=== PATIENT | male | born 1945 | race Caucasian/White ===

== ENCOUNTER → 2018-07-05 | Outpatient (CLI) | payer OTHER, MEDICARE | LOC: BHLMT 09:15 | PROVIDERS: ATTEND Internal Medicine Cardiovascular Disease | DX: I48.0 Paroxysmal atrial fibrillation (principal); I25.10 Atherosclerotic heart disease of native coronary artery without angina pectoris | CPT/HCPCS: 93306-PO ==

== ENCOUNTER 2018-07-12 08:30 | Inpatient (IN) | payer OTHER, MEDICARE ==
[2018-07-12 12:56] LABS: PLATELET COUNT 151 10^3/uL (150-400)
[2018-07-12 12:57] LABS: INR 2.09 (0.83-1.16); PROTIME(PATIENT) 22.5 SEC (12.0-15.0)
[2018-07-12] MEDS ORDERED: DOFETILIDE 0.5 MG CAP PO SCH (13:45)
--- NOTE | 2018-07-12 13:50 | PDCARPN ---
Cardiology Progress Note Chief Complaint: Atrial fibrillation Assessment/Plan: Assessment: 1. Atrial fibrillation with RVR: Symptoms include fatigue and activity intolerance. [id number] score = at least 3, he is anticoagulated with Coumadin. 2. Coronary artery disease: s/p PCI and CABG 3. Sustained ventricular tachycardia 4. ICD: 1 recent inappropriate shock second to Afib with RVR, recent ATP for sustained VT 5. Cardiomyopathy: s/p BiV ICD 6. PVCs: s/p successful ablation Plan: CrCl 103mL/min QTc overestimated by auto-ECG reading, QT<400ms, ICD in place 1. Load with Tikosyn 500mcg BID 2. ECG 2hrs post-administration 07/12/18 13:50 Reviewed/Discussed With: multidisciplinary team Time Spent with Patient: greater than 25 minutes Time Spent with Patient: Greater than 25 minutes spent on this patients care, greater than 50% of time spent counseling, educating, and coordinating care regarding the above mentioned plan. Objective: Vital Signs (8 Hrs) Temp Pulse Resp BP Pulse Ox 07/12/18 11:26 36.6 C 84 11 L 116/71 96 Intake/Output (24 Hrs) 07/11/18 07/12/18 07/13/18 05:59 05:59 05:59 Other: Weight 90.8 kg Result Diagrams: 07/12/18 12:40 07/12/18 12:40 EKG: QTc <500ms ICD10 Worksheet Patient Problems: Problems Problem Status Onset Cardiac defibrillator in situ Active Cardiomyopathy Active Congestive heart failure due to left ventricular systolic dysfunction Active Coronary artery bypass grafting Active Ventricular tachycardia Active
--- NOTE | 2018-07-12 14:09 | PDMN ---
Medical Necessity Medical necessity: [facility] [place]: 72 yo w/ afib w/ RVR here for Tikosyn ( dofetilide) loading. Hx CAD, PCI, CABG, sustained VT. IP status for afib w/ need for treatment with antiarrhythmic drugs that have significant proarrhythmic potential
[2018-07-12] MEDS: DOFETILIDE 0.5 MG CAP PO SCH ×2 (14:11→17:57)
[2018-07-12] MEDS ORDERED: ALPRAZolam 0.25 MG TAB PO PRN (16:06)
[2018-07-12] MEDS: ATORVASTATIN CALCIUM 40 MG TAB PO SCH (21:17)
[2018-07-12] MEDS: EZETIMIBE 10 MG TAB PO SCH (21:17)
[2018-07-12] MEDS: METOPROLOL TARTRATE 50 MG TAB PO SCH (21:17)
[2018-07-12] MEDS: TAMSULOSIN HCL 0.4 MG CAP PO SCH (21:17)
[2018-07-12] MEDS: ASPIRIN 81 MG CHEWABLE TAB PO SCH (21:17)
[2018-07-12] MEDS: WARFARIN SODIUM 4 MG TAB PO SCH (21:17)
[2018-07-12] MEDS: ZOLPIDEM TARTRATE 5 MG TAB PO PRN (21:21)
[2018-07-13 04:44] LABS: INR 2.08 (0.83-1.16); PROTIME(PATIENT) 22.4 SEC (12.0-15.0)
[2018-07-13] MEDS: DOFETILIDE 0.5 MG CAP PO SCH ×2 (09:02→21:22)
[2018-07-13] MEDS: CHOLECALCIFEROL VIT D3 2,000 UNITS TAB/CAP PO SCH (09:02)
[2018-07-13] MEDS: METOPROLOL TARTRATE 50 MG TAB PO SCH ×2 (09:02→21:21)
[2018-07-13] MEDS: ESCITALOPRAM OXALATE 10 MG TAB PO SCH (09:03)
[2018-07-13] MEDS: LISINOPRIL 2.5 MG TAB PO SCH (09:03)
[2018-07-13] MEDS: SPIRONOLACTONE 25 MG TAB PO SCH (09:03)
--- NOTE | 2018-07-13 09:09 | PDCARPN ---
Cardiology Progress Note Chief Complaint: Atrial fibrillation Assessment/Plan: Assessment: 1. Atrial fibrillation with RVR: Symptoms include fatigue and activity intolerance. [id number] score = at least 3, he is anticoagulated with Coumadin. 2. Coronary artery disease: s/p PCI and CABG 3. Sustained ventricular tachycardia 4. ICD: 1 recent inappropriate shock second to Afib with RVR, recent ATP for sustained VT 5. Cardiomyopathy: s/p BiV ICD 6. PVCs: s/p successful ablation Plan: CrCl 103mL/min QTc overestimated by auto-ECG reading, QT<500ms, ICD in place, no post-dose ECG completed yesterday 1. Continue to load with Tikosyn 500mcg BID 2. ECG 2hrs post-administration 3. Plan for cardioversion tomorrow, NPO after midnight 07/13/18 09:08 Objective: Vital Signs (8 Hrs) Temp Pulse Resp BP Pulse Ox 07/13/18 09:02 76 115/70 07/13/18 07:51 36.3 C 100 18 116/76 96 07/13/18 03:10 36.4 C 80 12 107/70 94 Intake/Output (24 Hrs) 07/12/18 07/13/18 07/14/18 05:59 05:59 05:59 Intake Total 400 Balance 400 Intake: Oral (ml) 400 IV Intake (ml) 0 Other: Weight 90.8 kg Result Diagrams: 07/12/18 12:40 07/13/18 03:34 Telemetry: Atrial fibrillation - Physical Exam Constitutional: WDWN, healthy appearing, no apparent distress Ears, Nose, Mouth, Throat: moist mucous membranes, no oral ulcers, no thrush Cardiovascular: irregularly irregular Respiratory: clear to auscultate bilat, no crackles, no wheezes Gastrointestinal: normoactive bowel sounds, no tenderness, no masses Neurologic: AAOx3, CN II-XII grossly intact Psychiatric: cooperative, interactive, following commands, not anxious ICD10 Worksheet Patient Problems: Problems Problem Status Onset Cardiac defibrillator in situ Active Cardiomyopathy Active Congestive heart failure due to left ventricular systolic dysfunction Active Coronary artery bypass grafting Active Ventricular tachycardia Active
--- NOTE | 2018-07-13 13:15 | CPEKG ---
Test Reason : OPEN Blood Pressure : / mmHG Vent. Rate : 082 BPM Atrial Rate : 133 BPM P-R Int : 124 ms QRS Dur : 127 ms QT Int : 429 ms P-R-T Axes : 109 215 175 degrees QTc Int : 501 ms A-V dual-paced rhythm Confirmed by Haider Dukes ([id number]) on 07/13/2018 1:15:11 PM Referred By: Haider Dukes Confirmed By:Haider Dukes
--- NOTE | 2018-07-13 13:20 | CPEKG ---
Test Reason : OPEN Blood Pressure : / mmHG Vent. Rate : 070 BPM Atrial Rate : 070 BPM P-R Int : 153 ms QRS Dur : 139 ms QT Int : 457 ms P-R-T Axes : 151 220 179 degrees QTc Int : 494 ms Atrial-ventricular dual-paced rhythm Confirmed by Haider Dukes ([id number]) on 07/13/2018 1:20:26 PM Referred By: Haider Dukes Confirmed By:Haider Dukes
--- NOTE | 2018-07-13 14:55 | ASMTCMCOM ---
CM Note CM Note Notes: 07/13/2018 Case Management Note Pt admitted for tikosyn loading. Met pt and Chiara [phone]. Pt lives with , is driving, reports no difficulties with groceries or meals. Pt is independent with ADL's. There are no therapy evals ordered today. Pt PCP is Dr. Dagoberto Julian in [place]. Case Management d/c poc: independent with follow up as directed. Case Management available if needs change. Date Signed: 07/13/2018 02:54 PM Electronically Signed By:Danitza Peter RN
[2018-07-13] MEDS: TAMSULOSIN HCL 0.4 MG CAP PO SCH (21:21)
[2018-07-13] MEDS: ASPIRIN 81 MG CHEWABLE TAB PO SCH (21:22)
[2018-07-13] MEDS: ATORVASTATIN CALCIUM 40 MG TAB PO SCH (21:22)
[2018-07-13] MEDS: EZETIMIBE 10 MG TAB PO SCH (21:22)
[2018-07-13] MEDS: WARFARIN SODIUM 4 MG TAB PO SCH (21:22)
[2018-07-13] MEDS: ZOLPIDEM TARTRATE 5 MG TAB PO PRN (21:26)
[2018-07-14] MEDS ORDERED: DOFETILIDE 0.5 MG CAP PO SCH
[2018-07-14] MEDS ORDERED: NS 1,000 ML IV ONE (06:00)
[2018-07-14] MEDS ORDERED: ATROPINE SULFATE 1 MG/10 ML SYR IVP ONE (06:00)
[2018-07-14] MEDS: SPIRONOLACTONE 25 MG TAB PO SCH (09:33)
[2018-07-14] MEDS: METOPROLOL TARTRATE 50 MG TAB PO SCH (09:34)
[2018-07-14] MEDS: DOFETILIDE 0.5 MG CAP PO SCH ×2 (09:34→15:04)
[2018-07-14] MEDS: CHOLECALCIFEROL VIT D3 2,000 UNITS TAB/CAP PO SCH (09:34)
[2018-07-14] MEDS: LISINOPRIL 2.5 MG TAB PO SCH (09:34)
[2018-07-14] MEDS: ESCITALOPRAM OXALATE 10 MG TAB PO SCH (09:35)
[2018-07-14 16:19] VITALS: BP 111/13
[2018-07-15] MEDS ORDERED: WARFARIN SODIUM 3 MG TAB PO SCH (21:00)
--- NOTE | 2018-07-19 13:27 | CPEKG ---
Test Reason : OPEN Blood Pressure : / mmHG Vent. Rate : 069 BPM Atrial Rate : 070 BPM P-R Int : 153 ms QRS Dur : 130 ms QT Int : 457 ms P-R-T Axes : 172 200 137 degrees QTc Int : 490 ms Atrial-ventricular dual-paced complexes Confirmed by Haider Dukes ([id number]) on 07/19/2018 1:27:20 PM Referred By: Haider Dukes Confirmed By:Haider Dukes
--- NOTE | 2018-07-19 13:43 | GDS ---
[f rep st] DISCHARGE SUMMARY SUPERVISING COMMUNICATION ENGINEER: Dr. Haider Dukes. ADMISSION DIAGNOSES: 1. Paroxysmal atrial fibrillation with rapid ventricular rates. 2. Coronary artery disease, status post percutaneous coronary intervention and coronary artery bypass graft. 3. Sustained ventricular tachycardia. 4. Implanted cardioverter-defibrillator. 5. Cardiomyopathy. 6. Premature ventricular contractions, status post successful ablation. DISCHARGE DIAGNOSES: 1. Atrial fibrillation with rapid ventricular rate, status post successful Tikosyn loading. 2. Coronary artery disease, status post percutaneous coronary intervention and coronary artery bypass graft. 3. Sustained ventricular tachycardia. 4. Implanted cardioverter-defibrillator. 5. Cardiomyopathy. 6. Premature ventricular contractions, status post successful ablation. HOSPITAL COURSE: Patient presented 07/12/2018, for Tikosyn loading in the setting of recurrent symptomatic paroxysmal atrial fibrillation. Baseline ECG demonstrated a JT interval less than 400 msec and laboratory studies demonstrated a creatinine clearance of 103 mL/minute. He was started on Tikosyn 500 mcg twice daily. Subsequent ECGs demonstrated JT intervals less than 400 msec. He tolerated Tikosyn well without any adverse side effects and he spontaneously converted to normal sinus rhythm during the day on 07/13/2018. He had 5 total doses of Tikosyn while admitted to the inpatient setting, and he is appropriate and stable for discharge home. PHYSICAL EXAMINATION: GENERAL: Alert and oriented x4 in no apparent distress. VITAL SIGNS: Blood pressure 111/13, heart rate 76, respiratory rate 18, SpO2 95% on room air, temp 36.9 degrees Celsius. RESPIRATORY: Lungs are clear to auscultation without adventitious breath sounds. CARDIAC: Rate regular rate and rhythm, S1, S2. ABDOMEN: Normoactive bowel sounds times all 4 quadrants. No masses or tenderness. Soft to palpation. SKIN: [place], warm, dry without cyanosis, clubbing, or peripheral edema. EXTREMITIES: Normal exam, full range of motion, pulses 2+ bilaterally. LABORATORY STUDIES: BMP normal, magnesium 2.2. PROCEDURES: Electrocardiograms as described above. DISCHARGE DISPOSITION: Patient will be discharged home in stable condition. He is not under any activity restrictions. DISCHARGE MEDICATIONS: Please see discharge medication reconciliation sheet for full details. Please note, the patient has been started on Tikosyn 500 mcg twice daily. DISCHARGE INSTRUCTIONS: Tikosyn patient education reviewed in detail, including need for prompt medical attention should he experience any protracted vomiting, diarrhea, or impaired p.o. intake. We discussed routine monitoring required for Tikosyn, including clinic visits every 3 months with an ECG and routine laboratory studies. At the time of discharge, the patient verbalized understanding regarding all discharge instructions without any questions or concerns. He will follow up with [facility] in 3 months, sooner for any new or concerning symptoms. Time spent on discharge: Greater than 30 minutes. /[id number]/MODL MTDD
--- NOTE | 2018-07-19 13:50 | CPEKG ---
Test Reason : OPEN Blood Pressure : / mmHG Vent. Rate : 071 BPM Atrial Rate : 071 BPM P-R Int : 172 ms QRS Dur : 148 ms QT Int : 444 ms P-R-T Axes : 183 207 176 degrees QTc Int : 483 ms Atrial-ventricular dual-paced rhythm Confirmed by Haider Dukes ([id number]) on 07/19/2018 1:50:03 PM Referred By: Haider Dukes Confirmed By:Haider Dukes
--- NOTE | 2018-07-19 13:54 | CPEKG ---
Test Reason : OPEN Blood Pressure : / mmHG Vent. Rate : 093 BPM Atrial Rate : 093 BPM P-R Int : 128 ms QRS Dur : 149 ms QT Int : 413 ms P-R-T Axes : -88 202 125 degrees QTc Int : 514 ms Atrial-sensed ventricular-paced rhythm Confirmed by Haider Dukes ([id number]) on 07/19/2018 1:53:36 PM Referred By: Haider Dukes Confirmed By:Haider Dukes
== END 2018-07-14 18:03 | disposition home or self-care (01) | DRG 310 ==
LOC: F2W 10:58 → OBSVTOIN 11:20
PROVIDERS: ADMIT Internal Medicine Cardiovascular Disease; ATTEND Internal Medicine Cardiovascular Disease
DX: I48.0 Paroxysmal atrial fibrillation (principal); I25.10 Atherosclerotic heart disease of native coronary artery without angina pectoris; I47.2 Ventricular tachycardia; Z79.01 Long term (current) use of anticoagulants; Z95.810 Presence of automatic (implantable) cardiac defibrillator; Z95.1 Presence of aortocoronary bypass graft; Z95.5 Presence of coronary angioplasty implant and graft